=== PATIENT | female | born 1930 | race Caucasian/White ===

== ENCOUNTER 2018-03-15 21:02 | Inpatient (IN) | payer MEDICARE, MEDICAID ==
[2018-03-15 21:19] VITALS: BMI 32.4
--- NOTE | 2018-03-15 21:33 | C.PDOC ---
History Of Present Illness 87 y/o female LUIS comes in after an unwitnessed slip and fall at home. Patient has a small laceration on the occipital area and is AAOx3, and complains of a headache and pain to the right hip. Patients right leg is slightly externally rotated. Denies any LOC, chest pain, palpitations, SOB, or visual changes. Time Seen by Provider: 03/15/18 21:17 Chief Complaint (Nursing): Headache History Per: Patient History/Exam Limitations: no limitations Onset/Duration Of Symptoms: Hrs Current Symptoms Are (Timing): Still Present Severity: Mild Pain Scale Rating Of: 4 Preceeding Symptoms: denies: Visual Disturbances Associated Symptoms: denies: Blurred Vision Recent travel outside of the [place]: No Additional History Per: EMS Past Medical History Reviewed: Historical Data, Nursing Documentation, Vital Signs Vital Signs: Last Vital Signs Temp 97.7 F 03/15/18 21:17 Pulse 72 03/15/18 21:17 Resp 20 03/15/18 21:17 BP 184/67 H 03/15/18 21:17 Pulse Ox 97 03/15/18 21:17 - Medical History PMH: Dementia, HTN Family History: States: No Known Family Hx - Social History Hx Alcohol Use: No Hx Substance Use: No - Immunization History Hx Tetanus Toxoid Vaccination: No Hx Influenza Vaccination: Yes Hx Pneumococcal Vaccination: No Review Of Systems Constitutional: Negative for: Fever, Chills Eyes: Negative for: Vision Change Cardiovascular: Negative for: Chest Pain, Palpitations Respiratory: Negative for: Shortness of Breath Musculoskeletal: Positive for: Other (Right hip pain) Neurological: Positive for: Headache Physical Exam - Physical Exam Appears: Non-toxic, No Acute Distress Skin: Warm, Dry Head: Laceration (4 cm) Eye(s): bilateral: Normal Inspection Oral Mucosa: Moist Neck: Supple Chest: Symmetrical Cardiovascular: Rhythm Regular, No Murmur Respiratory: No Rales, No Rhonchi, No Wheezing Gastrointestinal/Abdominal: Soft, No Tenderness Back: Normal Inspection Extremity: Tenderness (to R hip), Capillary Refill (less than 2 seconds), No Swelling Extremity: Right: Painful To Bear Weight, Other (R leg slightly externally rotated), Bilateral: Normal Color And Temperature Pulses: Left Dorsalis Pedis: Normal, Right Dorsalis Pedis: Normal Neurological/Psych: Oriented x3, Normal Speech Gait: Unable To Assess ED Course And Treatment - Laboratory Results Result Diagrams: 03/15/18 22:22 03/15/18 22:22 ECG: Interpreted By Me, Viewed By Me ECG Rhythm: Sinus Rhythm (70), L BBB O2 Sat by Pulse Oximetry: 97 (RA) Pulse Ox Interpretation: Normal - Radiology CXR: Interpreted by Me, Viewed By Me CXR Interpretation: Yes: Cardiomegaly, Other. No: Infiltrates, Fracture - CT Scan/US CT C-Spine Other Rad Studies (CT/US): Read By Radiologist, Radiology Report Reviewed CT/US Interpretation: FINDINGS: ALIGNMENT. Bony alignment is anatomic. DEGENERATIVE CHANGES. Disc space narrowing of all cervical levels with the exception of C2-C3 disc. . SOFT TISSUES. Prevertebral soft tissues unremarkable. Dense left carotid calcifications. BONES. Grade 1 retrolisthesi s of C5 on C6. No cervical fracture identified. IMPRESSION: 1. Disc space narrowing of all cervical levels with the exception of C2-C3 disc. . 2. Grade 1 retrolisthesis of C5 on C6. 3. No cervical fracture identified. 4. Prevertebral soft tissues unremarkable. CT Head Other Rad Studies (CT/US): Read By Radiologist, Radiology Report Reviewed CT/US Interpretation: FINDINGS: BRAIN. No acute intracranial hemorrhage or vascular territorial edema. VENTRICLES: No hydrocephalus. ORBITS: The orbits are unremarkable. SINUSES AND MASTOIDS: The paranasal sinuses and mastoid air cells are clear. BONES: No fracture. SOFT TISSUES: Unremarkable. MISCELLANEOUS: Age appropriate involutional changes. IMPRESSION: 1. Age appropriate involutional changes. 2. No acute intracranial hemorrhage or vascular territorial edema. CT Pelvis Other Rad Studies (CT/US): Read By Radiologist, Radiology Report Reviewed CT/US Interpretation: FINDINGS: HIP JOINTS: Focused images acquired of the right hip. No dislocation. The joint spaces are normal. BONES: There is a nondisplaced fracture of the right inferior pubic ramus, see series 601, coronal, image 86. Hip fracture not identified. SOFT TISSUES: The pelvic viscera are unremarkable. No fluid collection, hematoma or mass. No radiopaque foreign body or soft tissue gas. MISCELLANEOUS: Grade 1 anterolisthesis L4 on L5, grade 1 anterolisthesis L5 on S1, both levels with vacuum disc phenomena. Injection granulomas in buttocks. IMPRESSION: 1. There is a nondisplaced fracture of the right inferior pubic ramus, see series 601, coronal, image 86. 2. Grade 1 anterolisthesis L4 on L5, grade 1 anterolisthesis L5 on S1, both levels with vacuum disc phenomena. 3. Injection granulomas in buttocks. 4. Hip fracture not identified. Progress Note: Labs, CT C-Spine, CT head, CT pelvis, chest x-ray and EKG ordered. Laceration - Laceration Repair scalp Wound Length (In cm): 4 Description Of Wound: Linear Wound Cleansed With: Betadine Anesthesia: Lidocaine 1%, With Epi Wound Examination: Irrigated With Saline Wound Closure: Cristine (# 10) Wound Complexity: Simple Disposition Discussed With Dr.: Remigio Rodriguez Comment: accepted the pt on his service and took over the care Doctor Will See Patient In The: Hospital Counseled Patient/Family Regarding: Studies Performed, Diagnosis - Disposition Disposition: HOSPITALIZED Disposition Time: 21:33 Condition: GOOD - Clinical Impression Clinical Impression: Fall, Syncope and collapse, Laceration of scalp, Closed fracture of single pubic ramus of pelvis - Scribe Statement The provider has reviewed the documentation as recorded by the Brittny Miller Provider Attestation: All medical record entries made by the Brittny were at my direction and personally dictated by me. I have reviewed the chart and agree that the record accurately reflects my personal performance of the history, physical exam, medical decision making, and the department course for this patient. I have also personally directed, reviewed, and agree with the discharge instructions and disposition. Decision To Admit - Pt Status Changed To: Hospital Disposition Of: Inpatient - Admit Certification Admit to Inpatient:: After my assessment, the patient will require hospitalization for at least two midnights. This is because of the severity of symptoms shown, intensity of services needed, and/or the medical risk in this patient being treated as an outpatient. - InPatient: Physician Admission Certification: I certify that this patient requires 2 or more midnights of care for the following reason:: After my assessment, the patient will require hospitalization for at least two midnights. This is because of the severity of symptoms shown, intensity of services needed, and/or the medical risk in this patient being treated as an outpatient. - . Bed Request Type: Telemetry Admitting Physician: Remigio Rodriguez Patient Diagnosis: Fall, Syncope and collapse, Laceration of scalp, Closed fracture of single pubic ramus of pelvis
[2018-03-15] MEDS ORDERED: Lidocaine 1%/Epinephrine 1:100000 30 ml vial IJ ONE (22:02)
[2018-03-15] MEDS ORDERED: Lidocaine/Epi 1% 1:100000 20 ML IJ ONE ×2 (22:15)
[2018-03-15 22:25] LABS: BASO # 0.1 K/uL (0.0-0.2); BASO % 0.7 % (0.0-2.0); EOS # 0.1 K/uL (0.0-0.7); EOS % 1.3 % (0.0-4.0); LYMPH # 1.8 K/uL (1.0-4.3); LYMPH % 18.3 % (20.0-40.0); MEAN CORPUSCULAR HEMOGLOBIN 24.5 pg (27.0-31.0); MEAN CORPUSCULAR HGB CONC 32.2 g/dL (33.0-37.0); MEAN PLATELET VOLUME 9.7 fL (7.2-11.7); MONO # 0.5 K/uL (0.0-0.8); MONO % 5.4 % (0.0-10.0); NEUT # 7.4 K/uL (1.8-7.0); NEUT % 74.3 % (50.0-75.0); RBC 4.9 Mil/uL (3.80-5.20); RED CELL DISTRIBUTION WIDTH 16.4 % (11.5-14.5)
[2018-03-15 22:37] LABS: ALB/GLOB RATIO 1.1 (1.0-2.1); ALBUMIN 3.8 g/dL (3.5-5.0); CALCIUM 9.2 mg/dl (8.6-10.4)
[2018-03-15 23:49] LABS: INR 1.1; PROTHROMBIN TIME 12.2 SECONDS (9.7-12.2)
[2018-03-16 01:29] VITALS: RESP 20
[2018-03-16] MEDS: Sodium Chloride 0.45% 1,000 ML IV SCH ×2 (01:39→21:42)
[2018-03-16 02:04] LABS: SQUAMOUS EPITHIAL 1 /hpf (0-5); URINE BACTERIA RARE (<OCC); URINE BILIRUBIN NEGATIVE (NEGATIVE); URINE BLOOD NEGATIVE (NEGATIVE); URINE CLARITY Clear (Clear); URINE COLOR Straw (YELLOW); URINE GLUCOSE (UA) NORMAL (Normal); URINE HYALINE CAST 0-2 /lpf (0-2); URINE LEUKOCYTE ESTERASE 1+ Leu/uL (Negative); URINE PROTEIN NEGATIVE (NEGATIVE); URINE UROBILINOGEN NORMAL mg/dL (0.2-1.0)
[2018-03-16 07:44] LABS: BASO # 0.1 K/uL (0.0-0.2); EOS # 0.2 K/uL (0.0-0.7); EOS % 2.6 % (0.0-4.0); HEMOGLOBIN 11.7 g/dL (11.0-16.0); MEAN CELL VOLUME 76.4 fL (81.0-99.0); MEAN CORPUSCULAR HGB CONC 32.7 g/dL (33.0-37.0); MONO # 0.4 K/uL (0.0-0.8); MONO % 5.9 % (0.0-10.0); NEUT # 4.7 K/uL (1.8-7.0); NEUT % 63.5 % (50.0-75.0); RBC 4.67 Mil/uL (3.80-5.20); RED CELL DISTRIBUTION WIDTH 16.5 % (11.5-14.5); WHITE BLOOD COUNT 7.4 K/uL (4.8-10.8)
[2018-03-16 08:03] LABS: ALB/GLOB RATIO 1.2 (1.0-2.1); ALBUMIN 3.8 g/dL (3.5-5.0); CALCIUM 9.2 mg/dl (8.6-10.4)
--- NOTE | 2018-03-16 09:13 | RAD ---
Date of service: 03/15/2018 HISTORY: SOB COMPARISON: None available. FINDINGS: LUNGS: No active pulmonary disease. PLEURA: No significant pleural effusion identified, no pneumothorax apparent. CARDIOVASCULAR: Calcific atherosclerotic changes are seen related to the thoracic aorta. Normal cardiac size. Hilar density is somewhat prominent but the patient rotated toward the right accentuating the left hilar vascular markings somewhat. Consider repeat chest radiograph or chest CT for added characterization of the mediastinum. OSSEOUS STRUCTURES: No significant abnormalities. VISUALIZED UPPER ABDOMEN: Normal. OTHER FINDINGS: None. IMPRESSION: No acute infiltrate or pleural effusion bilaterally. No definite pulmonary vascular congestion. Patient rotated toward the right in the left hilar vascular markings are prominent secondarily. Nodularity at the right hilum may be present. Consider follow-up chest CT for added characterization. PA review added.
[2018-03-16] MEDS: Pantoprazole 40 mg EC Tab PO SCH (09:18)
[2018-03-16] MEDS: diltiaZEM 180 mg/24 Hours CD Cap PO SCH (09:18)
--- NOTE | 2018-03-16 10:19 | CP.PCM.CON ---
History of Present Illness - History of Present Illness History of Present Illness: Podiatry consult note for Dr. Cohen 87 y/o female patient seen and evaluated at bedside for wound to the right hallux. Patient's family is present at bedside. Patient has been admitted due to a slip and fll at home, and fracture of the pelvis. Patient's family states this wound has been present for many months, however, they have never noticed any drainage. They do no recall when patient lost her toenail to that hallux. Patient has PMHx of Dementia and HTN. patient denies any pain at this time to the right foot. PMHx: dementia, HTN PSHX: unknown Fmaily Hx: denied by patient ALL: NKDA Review of Systems - Review of Systems All systems: reviewed and no additional remarkable complaints except Review of Systems: as per HPI Past Patient History - Infectious Disease Hx of Infectious Diseases: None - Past Medical History & Family History Past Medical History?: Yes - Past Social History Smoking Status: Never Smoked - CARDIAC Hx Hypertension: Yes - PULMONARY Hx Respiratory Disorders: No - NEUROLOGICAL Hx Dementia: Yes - HEENT Hx HEENT Problems: No - RENAL Hx Chronic Kidney Disease: Yes - ENDOCRINE/METABOLIC Hx Endocrine Disorders: Yes Hx Diabetes Mellitus Type 2: Yes - HEMATOLOGICAL/ONCOLOGICAL Hx Blood Disorders: No - INTEGUMENTARY Hx Dermatological Problems: No - MUSCULOSKELETAL/RHEUMATOLOGICAL Hx Musculoskeletal Disorders: Yes Hx Falls: Yes - GASTROINTESTINAL Hx Gastrointestinal Disorders: No - GENITOURINARY/GYNECOLOGICAL Hx Genitourinary Disorders: No - PSYCHIATRIC Hx Substance Use: No - SURGICAL HISTORY Hx Surgeries: No - ANESTHESIA Hx Anesthesia: No Hx Anesthesia Reactions: No Meds Allergies/Adverse Reactions: Allergies Allergy/AdvReac Type Severity Reaction Status Date / Time No Known Allergies Allergy Verified 03/15/18 21:21 - Medications Medications: Current Medications Acetaminophen (Tylenol 325mg Tab) 650 mg PO Q6 PRN PRN Reason: Pain, moderate (4-7) Last Admin: 03/16/18 06:10 Dose: 650 mg Diltiazem HCl (Cardizem Cd) 180 mg PO DAILY [facility] Last Admin: 03/16/18 09:18 Dose: 180 mg Heparin Sodium (Porcine) (Heparin) 5,000 units SC Q12 [facility] Last Admin: 03/16/18 09:18 Dose: 5,000 units Sodium Chloride (Sodium Chloride 0.45%) 1,000 mls @ 50 mls/hr IV .Q20H [facility] Last Admin: 03/16/18 01:39 EDT Dose: 50 mls/hr Pantoprazole Sodium (Protonix Ec Tab) 40 mg PO DAILY [facility] Last Admin: 03/16/18 09:18 Dose: 40 mg Pneumococcal Polyvalent Vaccine (Pneumovax 23 Vaccine) 0.5 ml IM .ONCE ONE Stop: 03/18/18 12:01 Quetiapine Fumarate (Seroquel) 25 mg PO [facility] Physical Exam - Constitutional Appears: Well, Non-toxic, No Acute Distress - Head Exam Head Exam: ATRAUMATIC, NORMOCEPHALIC - Extremities Exam Additional comments: Bilateral Lower Extremity Exam VASC: DP and PT 1/4 bilaterally, CFT less than 3 second X 10, TG within normal limits, no edema NEURO: grossly intact DERM: right hallux nail nail bed macerated, no drainage, negative probe to bone, no malodor, no edema, no erythema, no clinical signs of infection noted at this time ORTHO: no pain on palpation, or pain with range of motion of the right hallux - Neurological Exam Neurological exam: Alert, Oriented x3 - Psychiatric Exam Psychiatric exam: Normal Affect, Normal Mood Results - Vital Signs Recent Vital Signs: Last Vital Signs Temp 98.1 F 03/16/18 07:00 Pulse 67 03/16/18 07:30 Resp 20 03/16/18 07:00 BP 154/76 H 03/16/18 07:00 Pulse Ox 99 03/16/18 07:00 - Labs Result Diagrams: 03/16/18 07:34 03/16/18 07:34 Labs: Laboratory Results - last 24 hr 03/15/18 03/15/18 03/15/18 22:22 22:22 22:22 WBC 10.0 RBC 4.90 Hgb 12.0 Hct 37.3 MCV 76.0 L MCH 24.5 L MCHC 32.2 L RDW 16.4 H Plt Count 180 MPV 9.7 Neut % (Auto) 74.3 Lymph % (Auto) 18.3 L Ramsey % (Auto) 5.4 Eos % (Auto) 1.3 Baso % (Auto) 0.7 Neut # (Auto) 7.4 H Lymph # (Auto) 1.8 Ramsey # (Auto) 0.5 Eos # (Auto) 0.1 Baso # (Auto) 0.1 PT Cancelled INR Cancelled APTT Cancelled Sodium 140 Potassium 4.2 Chloride 109 H Carbon Dioxide 20 L Anion Gap 16 BUN 34 H Creatinine 2.2 H Est GFR ( Amer) 26 Est GFR (Non-Af Amer) 21 POC Glucose (mg/dL) Random Glucose 114 H Calcium 9.2 Total Bilirubin 0.4 AST 18 ALT 16 Alkaline Phosphatase 53 Total Protein 7.2 Albumin 3.8 Globulin 3.3 Albumin/Globulin Ratio 1.1 Urine Color Urine Clarity Urine pH Ur Specific [place] Urine Protein Urine Glucose (UA) Urine Ketones Urine Blood Urine Nitrate Urine Bilirubin Urine Urobilinogen Ur Leukocyte Esterase Urine WBC (Auto) Urine RBC (Auto) Ur Squamous Epith Cells Urine Bacteria Hyaline Casts Blood Type Antibody Screen 03/15/18 03/15/18 03/16/18 22:22 23:35 01:56 EST WBC RBC Hgb Hct MCV MCH MCHC RDW Plt Count MPV Neut % (Auto) Lymph % (Auto) Ramsey % (Auto) Eos % (Auto) Baso % (Auto) Neut # (Auto) Lymph # (Auto) Ramsey # (Auto) Eos # (Auto) Baso # (Auto) PT 12.2 INR 1.1 APTT 30 Sodium Potassium Chloride Carbon Dioxide Anion Gap BUN Creatinine Est GFR ( Amer) Est GFR (Non-Af Amer) POC Glucose (mg/dL) Random Glucose Calcium Total Bilirubin AST ALT Alkaline Phosphatase Total Protein Albumin Globulin Albumin/Globulin Ratio Urine Color Straw Urine Clarity Clear Urine pH 5.0 Ur Specific [place] 1.010 Urine Protein Negative Urine Glucose (UA) Normal Urine Ketones Negative Urine Blood Negative Urine Nitrate Negative Urine Bilirubin Negative Urine Urobilinogen Normal Ur Leukocyte Esterase 1+ H Urine WBC (Auto) 5 Urine RBC (Auto) 2 Ur Squamous Epith Cells 1 Urine Bacteria Rare Hyaline Casts 0-2 Blood Type O POSITIVE Antibody Screen Negative 03/16/18 03/16/18 03/16/18 07:20 07:34 07:34 WBC 7.4 RBC 4.67 Hgb 11.7 Hct 35.7 MCV 76.4 L MCH 25.0 L MCHC 32.7 L RDW 16.5 H Plt Count 185 MPV 10.0 Neut % (Auto) 63.5 Lymph % (Auto) 27.0 Ramsey % (Auto) 5.9 Eos % (Auto) 2.6 Baso % (Auto) 1.0 Neut # (Auto) 4.7 Lymph # (Auto) 2.0 Ramsey # (Auto) 0.4 Eos # (Auto) 0.2 Baso # (Auto) 0.1 PT INR APTT Sodium 141 Potassium 4.0 Chloride 109 H Carbon Dioxide 23 Anion Gap 12 BUN 29 H Creatinine 2.0 H Est GFR ( Amer) 29 Est GFR (Non-Af Amer) 24 POC Glucose (mg/dL) 84 Random Glucose 96 Calcium 9.2 Total Bilirubin 0.4 AST 16 ALT 16 Alkaline Phosphatase 67 Total Protein 6.9 Albumin 3.8 Globulin 3.1 Albumin/Globulin Ratio 1.2 Urine Color Urine Clarity Urine pH Ur Specific [place] Urine Protein Urine Glucose (UA) Urine Ketones Urine Blood Urine Nitrate Urine Bilirubin Urine Urobilinogen Ur Leukocyte Esterase Urine WBC (Auto) Urine RBC (Auto) Ur Squamous Epith Cells Urine Bacteria Hyaline Casts Blood Type Antibody Screen Assessment & Plan - Assessment and Plan (Free Text) Assessment: 87 y/o female patient seen and evaluated for right hallux wound, non-infected Plan: Patient seen and evaluated at bedside Plan discussed with Dr. Cohen Afebrile, absent leukocytosis Right Foot X-ray Ordered Right Foot Wound Culture Ordered Wound dressed with a band-aid at this time Podiatry will continue to follow patient while in house Thank you for the consult
--- NOTE | 2018-03-16 15:00 | CT ---
Date of service: 03/15/2018 PROCEDURE: CT Pelvis without contrast HISTORY: fall, att right hip COMPARISON: None available. TECHNIQUE: Contiguous axial images of the pelvis . No intravenous or oral contrast given. Coronal and sagittal reformats generated. Radiation dose: Total exam DLP = 488.08 mGy-cm. This CT exam was performed using one or more of the following dose reduction techniques: Automated exposure control, adjustment of the mA and/or kV according to patient size, and/or use of iterative reconstruction technique. FINDINGS: BONES: A nondisplaced fracture of the right inferior pubic ramus junction with the ischium is identified. Diffuse osteopenia suggests osteoporosis throughout the pelvis. No additional fracture appreciable including right hip joint. Moderate degenerative changes seen the bilateral hip joints with no subluxation or dislocation associated. Advanced degenerative changes seen the bilateral sacroiliac joints. Sacrum and iliac bones are otherwise intact the pubic symphysis is unremarkable peer remaining pubic bones are unremarkable exclusive of the right inferior pubic ramus and ischium. Bilateral proximal femora are intact without fracture or destructive bony lesion. BLADDER: Unremarkable. No mass. REPRODUCTIVE ORGANS: Unremarkable. VISUALIZED BOWEL: Unremarkable. PERITONEUM: Unremarkable, as visualized. No free fluid. No free air. LYMPH NODES: Unremarkable. No enlarged lymph nodes. VASCULATURE: Nonaneurysmal abdominal aortic calcific atherosclerotic changes are identified. Prominent atherosclerosis of the iliac arterial system is also identified bilaterally. OTHER FINDINGS: None. IMPRESSION: Nondisplaced fracture of the right inferior pubic ramus junction with ischium. Degenerative changes seen the bilateral sacroiliac and hip joints. Pubic symphysis appears intact.
--- NOTE | 2018-03-16 15:14 | CT ---
Date of service: 03/15/2018 PROCEDURE: CT Cervical Spine without contrast HISTORY: neck pain, s/p fall COMPARISON: None available. TECHNIQUE: Axial computed tomography images were obtained of the cervical spine without the use of intravenous contrast. Coronal and sagittal reformatted images were created and reviewed. Radiation dose: Total exam DLP = 421.09 mGy-cm. This CT exam was performed using one or more of the following dose reduction techniques: Automated exposure control, adjustment of the mA and/or kV according to patient size, and/or use of iterative reconstruction technique. FINDINGS: VERTEBRAE: No fracture identified throughout. Grade 1 spondylolisthesis C5-6 seen with C5 slightly posterior to C6, on a degenerative basis. No spondylolysis identified. No destructive bony lesion. DISCS/SPINAL CANAL/NEURAL FORAMINA: Multilevel spondylosis identified throughout the cervical spine sparing C2-3 and C7-T1. Marked disc height loss is seen in the same distribution but sparing the same levels. Degenerative C1-2 changes are appreciated. Craniocervical junction is intact. PARASPINAL SOFT TISSUES: At C5-6, a disc osteophyte complex encroaches the ventral nerve roots without causing generalized central stenosis. Moderate right and mild left degenerative neural foraminal stenoses are identified. Minimal spondylolisthesis noted as discussed above. At C6-7, mild left but no degenerative neural foraminal stenosis appreciated and limited disc osteophyte complex is appreciated without stenosis. At C7-T1, no stenosis is appreciated. No gross disc herniation throughout the exam. Follow-up MRI can be performed for added characterization of the intervertebral discs if clinically warranted. OTHER FINDINGS: None. IMPRESSION: No acute fracture identified. Minimal grade 1 spondylolisthesis C5-6. Multilevel degenerative spondylosis and facet joint arthropathy are identified without severe stenosis evident. Variable inferior cervical bilateral neural foraminal stenoses are appreciated on degenerative basis. Concordant preliminary report from [employer], 03/15/2018.
--- NOTE | 2018-03-16 15:17 | CT ---
Date of service: 03/15/2018 PROCEDURE: CT HEAD WITHOUT CONTRAST. HISTORY: R/O Bleed, s/p fall COMPARISON: None available. TECHNIQUE: Axial computed tomography images were obtained through the head/brain without intravenous contrast. Radiation dose: Total exam DLP = 979.32 mGy-cm. This CT exam was performed using one or more of the following dose reduction techniques: Automated exposure control, adjustment of the mA and/or kV according to patient size, and/or use of iterative reconstruction technique. FINDINGS: HEMORRHAGE: No intracranial hemorrhage. BRAIN: Normal hidalgo-white matter differentiation and density are appreciated throughout the cerebrum and cerebellum with the brainstem appearing unremarkable as well. There is no mass effect. There is no suspicious extra-axial fluid collection and the midline brain anatomy appears diffusely unremarkable. VENTRICLES: Unremarkable. No hydrocephalus. CALVARIUM: No destructive bony lesion or displaced fracture identified including through the skullbase. Likely right parietal scalp laceration. PARANASAL SINUSES: Unremarkable as visualized. No significant inflammatory changes. MASTOID AIR CELLS: Unremarkable as visualized. No inflammatory changes. OTHER FINDINGS: None. IMPRESSION: Moderate age related neuro degenerative change are appreciated which appear age-appropriate and without acute intracranial findings by standard CT criteria. No fracture identified. Likely right parietal scalp laceration. Concordant preliminary report from [facility], 03/15/2018.
--- NOTE | 2018-03-16 16:19 | RAD ---
Date of service: 03/16/2018 PROCEDURE: Right Foot Radiographs. HISTORY: r/o OM COMPARISON: None. FINDINGS: BONES: There is gross osteopenia which likely reflects advanced osteoporosis. No displaced fractures identified or blastic or lytic bony process to suggest osteomyelitis grossly. JOINTS: Degenerative changes seen manifest by cortical sclerosis throughout the joints of the forefoot midfoot and hindfoot. SOFT TISSUES: Diffuse soft tissue edema surrounds the right foot and distal leg. No emphysematous soft tissue changes are identified or retained radiodense foreign body. OTHER FINDINGS: None. IMPRESSION: Diffuse soft tissue edema. Diffuse osteopenia suggests osteoporosis with no fracture or destructive bony lesion appreciable. No overt pattern to suggest colitis. Clinically correlate nevertheless. MRI may be useful, particularly in this osteopenic patient.
--- NOTE | 2018-03-16 23:24 | CON ---
DATE: 03/16/2018 CARDIOLOGY CONSULTATION HISTORY OF PRESENT ILLNESS: The patient is an 87-year-old Ethiopian female who has a history of hypertension, paroxysmal atrial fibrillation in the past, chronic renal insufficiency and ostearthritis who presents because of a near syncopal episode and a fall, sustained a scalp injury as well as pelvic fracture. The patient has no prior history of falls in the past and is unaware of history of stroke or a heart attack. SOCIAL HISTORY: Nonsmoker. Nondrinker. MEDICATIONS: Cardizem CD 180 mg once daily, heparin 5000 units subcutaneously every 12 hours, Protonix 20 mg p.o. once a day, Seroquel 25 mg at bedtime, half normal saline 50 mL an hour. REVIEW OF SYSTEMS: No nausea or vomiting. No fever or chills. No retrosternal chest pain. PHYSICAL EXAMINATION: GENERAL: The patient is an elderly female who does not appear to be in acute distress. VITAL SIGNS: Blood pressure 154/76, heart rate 68, temperature 98.1, respirations 20. HEENT: Dressing applied to the sutured scalp laceration. NECK: No JVD. CHEST: Clear. HEART: S1 and S2 are regular. EXTREMITIES: 1+ pitting edema. LABORATORY DATA: SMA-7: Sodium 141, potassium 4, chloride 109, CO2 of 23, glucose 96, BUN 29, creatinine 2. Hemoglobin and hematocrit 11.7 and 35.7, white count and platelet count are within normal limits. EKG revealed sinus rhythm with left bundle-branch block. Chest x-ray, no acute infiltrate or pleural effusion. No definitive pulmonary vascular congestion. The patient's official report of pelvic, head and cervical spine CT scans are still pending. ASSESSMENT: 1. Near syncopal episode and a fall. 2. Possible pelvic fracture and possible impacted right femoral neck fracture. 3. Hypertension. 4. Chronic renal insufficiency. 5. History of paroxysmal atrial fibrillation. RECOMMENDATIONS: Continue current Cardizem, subcutaneous heparin, Seroquel. Obtain echocardiographic study. The patient will be evaluated by Dr. Figueroa, the orthopedic surgeon. Hai Kelly MD
--- NOTE | 2018-03-17 05:06 | HP ---
DAILY HISTORY AND PHYSICAL HISTORY OF PRESENT ILLNESS: This is an 87-year-old [place] female with history of hypertension, presented to emergency room after a fall and a lacerated wound on the back of her head. The patient stated that she did not have anything out of the usual on the day before the fall, and she had some liquid in the floor that made her to lose her balance. She has a lacerated wound in the back of the head that was stapled as well as other review of system is negative. ALLERGIES: NO KNOWN ALLERGY. MEDICATIONS: Medications were reviewed and ordered. SOCIAL HISTORY: No history of smoking, EtOH or substance abuse. FAMILY HISTORY: Noncontributory. PAST MEDICAL HISTORY: Hypertension, gastroesophageal reflux disease, dementia. PHYSICAL EXAMINATION: GENERAL: The patient is in bed, not in any cardiopulmonary distress. VITAL SIGNS: With a blood pressure of 160/80, temperature 98.2, respiratory rate 20 and pulse 65. HEENT: Pupils equal and reactive to light. Normal-appearing mucosa of the conjunctivae, oropharynx, and nasal membrane mucosa. NECK: Supple. No JVD. No carotid bruits. No lymph node. No thyromegaly. CHEST AND LUNGS: Bilateral symmetrical expansion. Good air exchange. No rales. No rhonchi. CARDIOVASCULAR SYSTEM: PMI not localized. S1 and S2. No additional sounds. ABDOMEN: Normoactive bowel sounds. No tenderness. No organomegaly. No masses. EXTREMITIES: No cyanosis, no clubbing, no edema. CENTRAL NERVOUS SYSTEM: Alert, awake, oriented x2. No neurological deficit could be appreciated. ASSESSMENT: 1. Fall with head trauma and lacerated wound in the back of the head. 2. Nondisplaced fracture of the inferior pubic ramus. 3. Hypertension. PLAN: Physical therapy, pain management. Resume the patient's home medications. Remigio Rodriguez MD
[2018-03-17] MEDS: Pantoprazole 40 mg EC Tab PO SCH (11:35)
[2018-03-17] MEDS: diltiaZEM 180 mg/24 Hours CD Cap PO SCH (11:35)
--- NOTE | 2018-03-17 11:53 | CP.PCM.CON ---
History of Present Illness - History of Present Illness History of Present Illness: Orthopedic consult: Dr. Figueroa Patient is an 87 y/o female with PMH of HTN, CKD and HLD c/o right hip pain. Daughter is at bedside who helps translate. The patient had a near syncopal episode at home two days ago. This resulted in an unwitnessed fall injury to her right side and head onto her hardwood floor. She sustained a scalp laceration and a right pelvis fracture. She was unable to get up after this to ambulate. She denies any other injuries or LOC. Pain is dull, intermittent and worse with WB activities. The pain is alleviated at rest. She denies any radiation of pain/numbness/tingling. She also denies CP/SOB/N/V/D/fever/dysuria/melena. Review of Systems - Review of Systems All systems: reviewed and no additional remarkable complaints except Review of Systems: as per HPI Past Patient History - Infectious Disease Hx of Infectious Diseases: None - Past Medical History & Family History Past Medical History?: Yes Past Family History: Reviewed and not pertinent - Past Social History Smoking Status: Never Smoked Alcohol: None Drugs: Denies - CARDIAC Hx Hypertension: Yes - PULMONARY Hx Respiratory Disorders: No - NEUROLOGICAL Hx Dementia: Yes - HEENT Hx HEENT Problems: No - RENAL Hx Chronic Kidney Disease: Yes - ENDOCRINE/METABOLIC Hx Endocrine Disorders: Yes Hx Diabetes Mellitus Type 2: Yes - HEMATOLOGICAL/ONCOLOGICAL Hx Blood Disorders: No - INTEGUMENTARY Hx Dermatological Problems: No - MUSCULOSKELETAL/RHEUMATOLOGICAL Hx Musculoskeletal Disorders: Yes Hx Falls: Yes - GASTROINTESTINAL Hx Gastrointestinal Disorders: No - GENITOURINARY/GYNECOLOGICAL Hx Genitourinary Disorders: No - PSYCHIATRIC Hx Substance Use: No - SURGICAL HISTORY Hx Surgeries: No - ANESTHESIA Hx Anesthesia: No Hx Anesthesia Reactions: No Meds Allergies/Adverse Reactions: Allergies Allergy/AdvReac Type Severity Reaction Status Date / Time No Known Allergies Allergy Verified 03/15/18 21:21 - Medications Medications: Current Medications Acetaminophen (Tylenol 325mg Tab) 650 mg PO Q6 PRN PRN Reason: Pain, moderate (4-7) Last Admin: 03/16/18 06:10 Dose: 650 mg Diltiazem HCl (Cardizem Cd) 180 mg PO DAILY [facility] Last Admin: 03/17/18 11:35 Dose: 180 mg Heparin Sodium (Porcine) (Heparin) 5,000 units SC Q12 [facility] Last Admin: 03/17/18 11:35 Dose: 5,000 units Sodium Chloride (Sodium Chloride 0.45%) 1,000 mls @ 50 mls/hr IV .Q20H [facility] Last Admin: 03/16/18 21:42 Dose: 50 mls/hr Pantoprazole Sodium (Protonix Ec Tab) 40 mg PO DAILY [facility] Last Admin: 03/17/18 11:35 Dose: 40 mg Pneumococcal Polyvalent Vaccine (Pneumovax 23 Vaccine) 0.5 ml IM .ONCE ONE Stop: 03/18/18 12:01 Quetiapine Fumarate (Seroquel) 25 mg PO HS [facility] Last Admin: 03/16/18 21:18 Dose: 25 mg Physical Exam - Constitutional Appears: Well, No Acute Distress - Eye Exam Eye Exam: EOMI, Normal appearance, PERRL - ENT Exam ENT Exam: Mucous Membranes Moist - Respiratory Exam Respiratory Exam: NORMAL BREATHING PATTERN - Cardiovascular Exam Cardiovascular Exam: +S1, +S2 - GI/Abdominal Exam GI & Abdominal Exam: Soft. absent: Tenderness - Extremities Exam Additional comments: R hip: no lateral hip tenderness, mild groin tenderness no swelling, no masses, no lesions, no deformity sensation intact SP/DP/TN motor intact EHL/FHL/TA/G pedal pulses intact calves soft NT b/l L hip: no tenderness, no swelling, no masses, no lesions, no deformity sensation intact SP/DP/TN motor intact EHL/FHL/TA/G pedal pulses intact - Neurological Exam Neurological exam: Alert, Oriented x3 - Psychiatric Exam Psychiatric exam: Normal Affect, Normal Mood - Skin Skin Exam: Normal Color, Warm Results - Vital Signs Recent Vital Signs: Last Vital Signs Temp 98.0 F 03/17/18 07:00 Pulse 75 03/17/18 07:00 Resp 20 03/17/18 07:00 BP 186/90 H 03/17/18 07:00 Pulse Ox 97 03/17/18 07:00 - Labs Result Diagrams: 03/16/18 07:34 03/16/18 07:34 Labs: Laboratory Results - last 24 hr 03/16/18 03/16/18 03/16/18 11:58 16:30 21:12 POC Glucose (mg/dL) 103 80 120 H 03/17/18 06:07 POC Glucose (mg/dL) 82 - Impressions Impression: Accession No. : [id number] Patient Name / ID : ALIZE RUIZ / [id number] Exam Date : 03/15/2018 21:35:16 ( Approved ) Study Comment : Sex / Age : F / 87Y Creator : Yue Jung Dictator : Ben Fishman MD Stock Analyst : Route Rider Supervisor : Ben Fishman MD Approver2 : Report Date : 03/15/2018 23:17:58 My Comment : Date of service: 03/15/2018 PROCEDURE: CT Pelvis without contrast HISTORY: fall, att right hip COMPARISON: None available. TECHNIQUE: Contiguous axial images of the pelvis . No intravenous or oral contrast given. Coronal and sagittal reformats generated. Radiation dose: Total exam DLP = 488.08 mGy-cm. This CT exam was performed using one or more of the following dose reduction techniques: Automated exposure control, adjustment of the mA and/or kV according to patient size, and/or use of iterative reconstruction technique. FINDINGS: BONES: A nondisplaced fracture of the right inferior pubic ramus junction with the ischium is identified. Diffuse osteopenia suggests osteoporosis throughout the pelvis. No additional fracture appreciable including right hip joint. Moderate degenerative changes seen the bilateral hip joints with no subluxation or dislocation associated. Advanced degenerative changes seen the bilateral sacroiliac joints. Sacrum and iliac bones are otherwise intact the pubic symphysis is unremarkable peer remaining pubic bones are unremarkable exclusive of the right inferior pubic ramus and ischium. Bilateral proximal femora are intact without fracture or destructive bony lesion. BLADDER: Unremarkable. No mass. REPRODUCTIVE ORGANS: Unremarkable. VISUALIZED BOWEL: Unremarkable. PERITONEUM: Unremarkable, as visualized. No free fluid. No free air. LYMPH NODES: Unremarkable. No enlarged lymph nodes. VASCULATURE: Nonaneurysmal abdominal aortic calcific atherosclerotic changes are identified. Prominent atherosclerosis of the iliac arterial system is also identified bilaterally. OTHER FINDINGS: None. IMPRESSION: Nondisplaced fracture of the right inferior pubic ramus junction with ischium. Degenerative changes seen the bilateral sacroiliac and hip joints. Pubic symphysis appears intact. Assessment & Plan (1) Closed fracture of single pubic ramus of pelvis Assessment and Plan: Patient is an 87 y/o female with a left inferior pubic ramus fracture -Dr. Figueroa recommends conservative management, no acute orthopedic intervention at this time -PT/OT PWB with assistive device -pain control -consult appreciated -above d/w Dr. Figueroa in agreement Status: Acute - Date & Time Date: 03/17/18 Time: 10:30
[2018-03-17] MEDS: Tramadol 25 mg PO PRN ×2 (13:25→21:32)
--- NOTE | 2018-03-17 18:04 | CARD ---
APPROVED REPORT Date of service: 03/17/2018 EXAM: Two-dimensional and M-mode echocardiogram with Doppler and color Doppler. Other Information Quality : GoodRhythm : INDICATION Syncope LBBB RISK FACTORS Hypertension 2D DIMENSIONS IVSd0.9 (0.7-1.1cm)LVDd2.4 (3.9-5.9cm) LVOT Diameter1.7 (1.8-2.4cm)PWd0.9 (0.7-1.1cm) LA Kktlio84 (18-58mL)LVDs1.9 (2.5-4.0cm) FS (%) 21.2 %LVEF (%)45.2 (>50%) LVEF (Moore's)46.92 % M-Mode DIMENSIONS RVDd1.56 (2.1-3.2cm)Left Atrium (MM)2.86 (2.5-4.0cm) Aortic Root3.25 (2.2-3.7cm)Aortic Cusp Exc.1.05 (1.5-2.0cm) LVEF (%)45 (>50%) Aortic Valve AoV Peak Qvyaesdi380.7cm/sAoV VTI29.3cmAO Peak GR.8mmHg LVOT Peak Bzgycwwu57.6cm/sLVOT VTI18.85cmAO Mean GR.5mmHg DAGOBERTO (VMAX)1.38ai9LMM (VTI)1.53cm2 Mitral Valve MV E Zfbhzlvt62.3cm/sMV E Peak Gr.17mmHgMV A Lucbncfh284.8cm/s MV E Mean Gr.6mmHgMV RNU504qdF/A ratio0.5 MVA (PHT)1.03yl1DXKE272.54 cm/s TDI Lateral E' Peak V3.51cm/sMedial E' Peak V2.35cm/sE/Lateral E'26.6 E/Medial E'39.7 Tricuspid Valve TR Peak Pabfpzdu839vu/sTR Peak Gr.47fsMkVOKM91tgMx LEFT VENTRICLE The left ventricle is normal size. There is normal left ventricular wall thickness. The left ventricular function is normal. The left ventricular ejection fraction is within the normal range. There is normal LV segmental wall motion. RIGHT VENTRICLE The right ventricle is normal size. ATRIA The left atrium size is normal. The right atrium size is normal. AORTIC VALVE There is mild to moderate valvular aortic stenosis. MITRAL VALVE Mitral annular calcification is moderate to severe. There is moderate mitral valve stenosis. Mitral regurgitation is mild. TRICUSPID VALVE There is mild tricuspid regurgitation. <Conclusion> Normal LV systolic function. Normal chamber size. Mild MR with moderate MS. Mild to moderate . Mild TR.
[2018-03-17] MEDS: Sodium Chloride 0.45% 1,000 ML IV SCH (19:23)
--- NOTE | 2018-03-17 21:18 | PN ---
DATE: 03/17/2018 SUBJECTIVE: No reported arrhythmia. The patient denies chest pain. PHYSICAL EXAMINATION VITAL SIGNS: Blood pressure 186/90, heart rate 75, temperature 98, respirations 20. LABORATORY DATA: Today's blood sugars are 82 and 92 respectively. Hemoglobin A1c is 6.3. Preliminary echocardiographic study revealed mildly depressed ejection fraction. Wound culture from the left big toe is positive for gram-negative rods. ASSESSMENT: 1. Status post fall and right inferior pubic ramus fracture. 2. Chronic insufficiency. 3. Hypertension. 4. Paroxysmal atrial fibrillation. RECOMMENDATIONS: Continue Cardizem CD 180 mg once a day, subcutaneous heparin 5000 units every 12 hours, Ultram 25 mg every 8 hours p.r.n. The patient will have physical therapy evaluation prior to her transfer to subacute rehab. Hai Kelly MD
[2018-03-18 07:04] LABS: CALCIUM 8.1 mg/dl (8.6-10.4)
--- NOTE | 2018-03-18 09:44 | CP.PCM.PN ---
<Danis Cohen - Last Filed: 03/18/18 09:43> Subjective - Date & Time of Evaluation Date of Evaluation: 03/18/18 Time of Evaluation: 09:43 Objective - Vital Signs/Intake and Output Vital Signs (last 24 hours): Temp Pulse Resp BP Pulse Ox 98.1 F 66 20 146/76 97 03/18/18 07:00 03/18/18 08:49 03/18/18 07:00 03/18/18 07:00 03/18/18 07:00 Intake and Output: 03/18/18 03/18/18 06:59 18:59 Intake Total 400 Output Total 350 Balance 50 - Medications Medications: Current Medications Acetaminophen (Tylenol 325mg Tab) 650 mg PO Q6 PRN PRN Reason: Pain, moderate (4-7) Last Admin: 03/16/18 06:10 Dose: 650 mg Diltiazem HCl (Cardizem Cd) 180 mg PO DAILY [facility] Last Admin: 03/17/18 11:35 Dose: 180 mg Heparin Sodium (Porcine) (Heparin) 5,000 units SC Q12 [facility] Last Admin: 03/17/18 21:35 Dose: 5,000 units Sodium Chloride (Sodium Chloride 0.45%) 1,000 mls @ 50 mls/hr IV .Q20H [facility] Last Admin: 03/17/18 19:23 Dose: 50 mls/hr Pantoprazole Sodium (Protonix Ec Tab) 40 mg PO DAILY [facility] Last Admin: 03/17/18 11:35 Dose: 40 mg Pneumococcal Polyvalent Vaccine (Pneumovax 23 Vaccine) 0.5 ml IM .ONCE ONE Stop: 03/18/18 12:01 Quetiapine Fumarate (Seroquel) 25 mg PO HS [facility] Last Admin: 03/17/18 21:35 Dose: 25 mg Tramadol HCl (Ultram) 25 mg PO Q8 PRN PRN Reason: Pain, severe (8-10) Last Admin: 03/17/18 21:32 Dose: 25 mg - Labs Labs: 03/16/18 07:34 03/18/18 06:27 PT 12.2 SECONDS (9.7-12.2) 03/15/18 23:35 INR 1.1 03/15/18 23:35 APTT 30 SECONDS (21-34) 03/15/18 23:35 <Amol Cummings - Last Filed: 03/18/18 22:17> Subjective - Subjective Subjective: Podiatry Progress Note-Dr. Cohen 87 y/o female patient seen and evaluated at bedside for wound to the right hallux with attending Dr. Cohen. Patient's family is present at bedside. Family reports that the right hallux appears better in terms of redness. Reports has been putting on triple antibiotic and a bandage on the toe. Reports decrease in drainage and pain. No other pedal complaints at this time. Objective - Vital Signs/Intake and Output Vital Signs (last 24 hours): Temp Pulse Resp BP Pulse Ox 97.7 F 65 20 133/80 96 03/18/18 15:00 03/18/18 15:00 03/18/18 15:00 03/18/18 15:00 03/18/18 15:00 Intake and Output: 03/18/18 03/19/18 18:59 06:59 Intake Total 1040 Output Total 450 Balance 590 - Medications Medications: Current Medications Acetaminophen (Tylenol 325mg Tab) 650 mg PO Q6 PRN PRN Reason: Pain, moderate (4-7) Last Admin: 03/16/18 06:10 Dose: 650 mg Diltiazem HCl (Cardizem Cd) 180 mg PO DAILY [facility] Last Admin: 03/18/18 10:01 Dose: 180 mg Heparin Sodium (Porcine) (Heparin) 5,000 units SC Q12 [facility] Last Admin: 03/18/18 10:02 Dose: 5,000 units Sodium Chloride (Sodium Chloride 0.45%) 1,000 mls @ 50 mls/hr IV .Q20H [facility] Last Admin: 03/18/18 13:17 Dose: Not Given Pantoprazole Sodium (Protonix Ec Tab) 40 mg PO DAILY [facility] Last Admin: 03/18/18 10:00 Dose: 40 mg Quetiapine Fumarate (Seroquel) 25 mg PO HS [facility] Last Admin: 03/17/18 21:35 Dose: 25 mg Tramadol HCl (Ultram) 25 mg PO Q8 PRN PRN Reason: Pain, severe (8-10) Last Admin: 03/17/18 21:32 Dose: 25 mg - Labs Labs: 03/16/18 07:34 03/18/18 06:27 PT 12.2 SECONDS (9.7-12.2) 03/15/18 23:35 INR 1.1 03/15/18 23:35 APTT 30 SECONDS (21-34) 03/15/18 23:35 - Constitutional Appears: Well, Non-toxic, No Acute Distress - Extremities Exam Extremities Exam: absent: Calf Tenderness Additional comments: Bilateral Lower Extremity Exam VASC: DP and PT 1/4 bilaterally, CFT less than 3 second X 10, TG within normal limits, no edema NEURO: grossly intact DERM: right hallux nail bed less macerated compared to initial evaluation, no drainage, negative probe to bone, no malodor, no edema, slight erythema to proximal nail folds- improving, no clinical signs of infection noted at this time ORTHO: no pain on palpation, or pain with range of motion of the right hallux - Neurological Exam Neurological Exam: Alert, Awake, Normal Gait Assessment and Plan - Assessment and Plan (Free Text) Assessment: 87F with right hallux wound, non-infected Plan: Patient seen and evaluated at bedside with attending Dr. Cohen Afebrile, absent leukocytosis Right Foot X-ray- Diffuse soft tissue edema. Diffuse osteopenia suggests osteoporosis with no fracture or destructive bony lesion appreciable. No overt pattern to suggest colitis. Clinically correlate nevertheless. MRI may be useful, particularly in this osteopenic patient. Right Foot Wound Culture-Serratia Wound dressed with a band-aid at this time Ordered Bactroban. To be applied with band-aid/dsd MRI ordered by primary- pending Podiatry will continue to follow patient while in house
[2018-03-18] MEDS: Pantoprazole 40 mg EC Tab PO SCH (10:00)
[2018-03-18] MEDS: diltiaZEM 180 mg/24 Hours CD Cap PO SCH (10:01)
[2018-03-18] MEDS ORDERED: Bisacodyl 5mg EC Tab PO ONE (10:30)
[2018-03-18] MEDS ORDERED: Pneumococcal 23-Valent Vaccine IM ONE (12:00)
[2018-03-18] MEDS: Sodium Chloride 0.45% 1,000 ML IV SCH (13:17)
--- NOTE | 2018-03-18 13:22 | PN ---
DATE: 03/17/2018 SUBJECTIVE: The patient was seen 03/17/2018. She was complaining of pain on the right lower extremity. PHYSICAL EXAMINATION: GENERAL: The patient was not in any cardiopulmonary distress. VITAL SIGNS: Blood pressure was 148/78, temperature 98.1, respiratory rate 20 and pulse 64. HEENT: Pupils equal, reactive to light. Normal-appearing mucosa of the conjunctivae, oropharynx and nasal membrane mucosa. NECK: Supple. No JVD. No carotid bruit. No lymph node. No thyromegaly. CHEST AND LUNGS: Bilateral symmetrical expansion. Good air exchange. No rales, no rhonchi. CARDIOVASCULAR SYSTEM: PMI not localized. S1 and S2. No additional sounds. ABDOMEN: Normoactive bowel sounds. No tenderness. No organomegaly. No masses. EXTREMITIES: No cyanosis, no clubbing, no edema. Her left big toe was draped with small wound at the site of removed nail. Culture was positive for gram-negative. Culture done by Podiatry showed gram-negative rods, but x-ray did not show any signs of osteomyelitis. CENTRAL NERVOUS SYSTEM: Alert, awake, oriented x2 and no neurological deficit could be appreciated. ASSESSMENT: 1. Fall with fracture of the inferior pubic ramus. 2. Head trauma with lacerated wound at the occipital region. 3. Chronic kidney disease. 4. Hypertension. PLAN: We will do MRI of the left foot and physical therapy. Plan to discharge to subacute rehabilitation. Discussed with the patient's family at the bedside. Remigio Rodriguez MD
--- NOTE | 2018-03-18 15:28 | CARD ---
APPROVED REPORT Date of service: 03/15/2018 EKG Measurement Heart [id number] <Conclusion> Normal sinus rhythm Left bundle branch block Abnormal ECG
--- NOTE | 2018-03-18 15:44 | CP.PCM.PN ---
Subjective - Date & Time of Evaluation Date of Evaluation: 03/18/18 Time of Evaluation: 15:41 - Subjective Subjective: Patient with daughter at bedside who translates. She says mother tolerated only a little PT today. Denies numbness/tingling. Also complaining of toe pain. Denies CP/SOB/dizziness. Review of Systems - Review of Systems All systems: reviewed and no additional remarkable complaints except - Respiratory Respiratory: As Per HPI - Gastrointestinal Gastrointestinal: As Per HPI - Genitourinary Genitourinary: UNREMARKABLE - Musculoskeletal Musculoskeletal: As Par HPI - Integumentary Additional comments: toe - Neurological Neurological: UNREMARKABLE - Hematologic/Lymphatic Hematologic: UNREMARKABLE Objective - Vital Signs/Intake and Output Vital Signs (last 24 hours): Temp Pulse Resp BP Pulse Ox 98.1 F 61 20 146/76 97 03/18/18 07:00 03/18/18 13:00 03/18/18 07:00 03/18/18 07:00 03/18/18 07:00 Intake and Output: 03/18/18 03/18/18 06:59 18:59 Intake Total 400 Output Total 350 Balance 50 - Medications Medications: Current Medications Acetaminophen (Tylenol 325mg Tab) 650 mg PO Q6 PRN PRN Reason: Pain, moderate (4-7) Last Admin: 03/16/18 06:10 Dose: 650 mg Diltiazem HCl (Cardizem Cd) 180 mg PO DAILY [facility] Last Admin: 03/18/18 10:01 Dose: 180 mg Heparin Sodium (Porcine) (Heparin) 5,000 units SC Q12 [facility] Last Admin: 03/18/18 10:02 Dose: 5,000 units Sodium Chloride (Sodium Chloride 0.45%) 1,000 mls @ 50 mls/hr IV .Q20H [facility] Last Admin: 03/18/18 13:17 Dose: Not Given Pantoprazole Sodium (Protonix Ec Tab) 40 mg PO DAILY [facility] Last Admin: 03/18/18 10:00 Dose: 40 mg Quetiapine Fumarate (Seroquel) 25 mg PO HS [facility] Last Admin: 03/17/18 21:35 Dose: 25 mg Tramadol HCl (Ultram) 25 mg PO Q8 PRN PRN Reason: Pain, severe (8-10) Last Admin: 03/17/18 21:32 Dose: 25 mg - Labs Labs: 03/16/18 07:34 03/18/18 06:27 PT 12.2 SECONDS (9.7-12.2) 03/15/18 23:35 INR 1.1 03/15/18 23:35 APTT 30 SECONDS (21-34) 03/15/18 23:35 - Constitutional Appears: Well, No Acute Distress - Head Exam Head Exam: ATRAUMATIC - Respiratory Exam Respiratory Exam: NORMAL BREATHING PATTERN - Cardiovascular Exam Additional comments: +DP/PT pulses - Neurological Exam Neurological Exam: Alert, Awake, Oriented x3 Neuro motor strength exam: Left Lower Extremity: 5 (+great toes ext, DF/PF, knee/hip flex ext), Right Lower Extremity: 5 - Psychiatric Exam Psychiatric exam: Normal Affect, Normal Mood - Skin Skin Exam: Dry, Intact, Normal Color, Warm Assessment and Plan (1) Closed fracture of single pubic ramus of pelvis Assessment & Plan: PT/OT VTE proph orthopedically stable for d/c, no orthopedic surgical intervention indicated patient to f/u in office in 2 weeks, call for appt d/w Dr. Figueroa, agrees with above Status: Acute
[2018-03-18] MEDS: Tramadol 25 mg PO PRN (22:04)
--- NOTE | 2018-03-19 01:05 | PN ---
DATE: 03/18/2018 SUBJECTIVE: She is not in any cardiopulmonary distress. The patient has redness and swelling of her left big toe, and she has pain in moving the right lower extremity. PHYSICAL EXAMINATION VITAL SIGNS: Blood pressure is 146/78, temperature 98.1, respiratory rate 20 and pulse 66. HEENT: Pupils equal and reactive to light. Normal-appearing mucosa of the conjunctivae, oropharynx and nasal membrane mucosa. NECK: Supple. No JVD. No carotid bruit. No lymph node. No thyromegaly. CHEST AND LUNGS: Bilateral symmetrical expansion. Good air exchange. No rales, no rhonchi. CARDIOVASCULAR SYSTEM: PMI not localized. S1, S2. No additional sounds. ABDOMEN: Normoactive bowel sounds. No tenderness. No organomegaly. No masses. EXTREMITIES: No cyanosis, no clubbing, no edema. Left big toe is red and swollen and more open wound at the site of the nail bed. CENTRAL NERVOUS SYSTEM: Alert, awake, oriented x2. Moves all extremities equally except that the right lower extremity is limited by pain due to fracture of the inferior pubic ramus. ASSESSMENT: 1. Status post fall with lacerated wound of the occipital part of the head. 2. Infected wound of the left big toe. 3. Nondisplaced fracture of the inferior pubic ramus. 4. Hypertension. 5. Chronic kidney disease. PLAN: Continue current therapy and management and physical therapy. Follow the MRI ordered for the left big toe. Plan to discharge to subacute rehabilitation. Remigio Rodriguez MD
--- NOTE | 2018-03-19 07:25 | MRI ---
Date of service: 03/18/2018 PROCEDURE: MRI Left Foot without contrast HISTORY: Left great toe wound. No history of trauma COMPARISON: None TECHNIQUE: Multiecho multiplanar sequences were performed through the left foot without the use of intravenous contrast. FINDINGS: BONES: There is increased T2 signal within the 5th metatarsal head and within the 5th proximal phalanx with corresponding decreased T1 signal. MUSCLES: Unremarkable SOFT TISSUES: Mild soft tissue swelling noted along the plantar aspect of the foot. There is diffuse soft tissue swelling about the 5th digit beginning at the level of the metatarsal head and extending distally.. LISFRANC LIGAMENT: Intact. PLANTAR PLATE: Visualized plantar fascia appears intact. EXTENSOR TENDONS: Intact FLEXOR TENDONS: Intact OTHER FINDINGS: None. IMPRESSION: Increased T2 signal within the 5th metatarsal head and within the 5th proximal phalanx with corresponding decreased T1 signal. Findings most consistent with osteomyelitis. Diffuse surrounding soft tissue edema beginning at the level of the 5th metatarsal head and extending distally, consistent with cellulitis. Additional findings as above
[2018-03-19 08:03] VITALS: PULSE 70; TEMP 98; O2SAT 97
[2018-03-19] MEDS: Pantoprazole 40 mg EC Tab PO SCH (09:51)
[2018-03-19] MEDS: diltiaZEM 180 mg/24 Hours CD Cap PO SCH (09:51)
[2018-03-19 10:39] VITALS: BP 176/84
--- NOTE | 2018-03-19 17:25 | CP.PCM.PN ---
Subjective - Date & Time of Evaluation Date of Evaluation: 03/19/18 Time of Evaluation: 17:23 - Subjective Subjective: 87 y/o female patient seen and evaluated at bedside for wound to the right hallux. Patient's family is present at bedside. Patient resting comfortably and in no acute distress. Patient's family states patient is being discharged today to a subacute rehab facility. Patient denies any N/F/V/sob at this time Objective - Vital Signs/Intake and Output Vital Signs (last 24 hours): Temp Pulse Resp BP Pulse Ox 98.0 F 70 20 176/84 H 97 03/19/18 07:25 03/19/18 07:25 03/19/18 07:25 03/19/18 10:00 03/19/18 07:25 Intake and Output: 03/19/18 03/19/18 06:59 18:59 Output Total 1050 Balance -1050 - Labs Labs: 03/16/18 07:34 03/18/18 06:27 PT 12.2 SECONDS (9.7-12.2) 03/15/18 23:35 INR 1.1 03/15/18 23:35 APTT 30 SECONDS (21-34) 03/15/18 23:35 - Constitutional Appears: Well, Non-toxic, No Acute Distress - Head Exam Head Exam: ATRAUMATIC, NORMOCEPHALIC - Extremities Exam Additional comments: VASC: DP and PT 1/4 bilaterally, CFT less than 3 second X 10, TG within normal limits, no edema NEURO: grossly intact DERM: right hallux nail bed less macerated compared to initial evaluation, no drainage, negative probe to bone, no malodor, no edema, decreased slight erythema to proximal nail folds- improving, no clinical signs of infection noted at this time, no wounds noted at the 5th digit, minimal erythema ORTHO: no pain on palpation, or pain with range of motion of the right hallux - Neurological Exam Neurological Exam: Alert, Awake, Oriented x3 - Psychiatric Exam Psychiatric exam: Normal Affect, Normal Mood Assessment and Plan - Assessment and Plan (Free Text) Assessment: 87F with right hallux wound, non-infected Plan: Patient seen and evaluated at bedside with attending Dr. Cohen Afebrile, absent leukocytosis Right Foot X-ray- Diffuse soft tissue edema. Diffuse osteopenia suggests osteoporosis with no fracture or destructive bony lesion appreciable. No overt pattern to suggest colitis. Clinically correlate nevertheless. MRI may be useful, particularly in this osteopenic patient. Right Foot Wound Culture-[place] Clinically wound is stable Wound dressed bactroban and DSD at this time MRI ordered by primary- increased T2 signal within the 5th metatarsal head and within the 5th proximal phalanx consistent with osteomyelitis, diffuse surrounding soft tissue edema at the level of the 5th metatarsal, consistent with cellulitis Podiatry will continue to follow patient while in house
--- NOTE | 2018-03-20 21:13 | DS ---
REASON FOR ADMISSION: This is an 87-year-old [place] female with history of multiple medical problems, was admitted after a fall and lacerated wounds on the occipital part of the head and fracture of the inferior pubic ramus. COURSE OF HOSPITALIZATION: The patient was admitted to the medical floor and she does not have any further episodes of dizziness or syncope. The patient states that she slipped on a wet floor and she fell. The patient was started on physical therapy. During the patient's stay, she had Podiatry consult for infected left big toe. The patient was started on Cipro 250 mg twice a day, and physical therapy, and she was discharged to subacute rehabilitation for deconditioning and physical therapy. FINAL DIAGNOSES: 1. Fall with fracture of the inferior pubic ramus as well as lacerated wounds of the occipital part of the head. 2. Chronic kidney disease. 3. Hypertension. 4. . [facility] [place] [facility] [place]
== END 2018-03-19 14:59 | DRG 536 ==
LOC: C.ER 21:02 → C.6T 22:47
PROVIDERS: ADMIT Internal Medicine; ATTEND Internal Medicine
DX: S32.591A Other specified fracture of right pubis, initial encounter for closed fracture (principal); W01.0XXA Fall on same level from slipping, tripping and stumbling without subsequent striking against object, initial encounter; E11.22 Type 2 diabetes mellitus with diabetic chronic kidney disease; F03.90 Unspecified dementia, unspecified severity, without behavioral disturbance, psychotic disturbance, mood disturbance, and anxiety; I12.9 Hypertensive chronic kidney disease with stage 1 through stage 4 chronic kidney disease, or unspecified chronic kidney disease; I48.0 Paroxysmal atrial fibrillation; K21.9 Gastro-esophageal reflux disease without esophagitis; N18.9 Chronic kidney disease, unspecified; S01.01XA Laceration without foreign body of scalp, initial encounter; R55 Syncope and collapse; E78.5 Hyperlipidemia, unspecified; M85.80 Other specified disorders of bone density and structure, unspecified site; M81.0 Age-related osteoporosis without current pathological fracture